=== PATIENT | female | born 1965 | race Caucasian/White ===

== ENCOUNTER 2023-06-23 13:13 | Emergency (ER) | payer OTHER ==
[~2023-06-23] VITALS: Ht 167.6 cm; Wt 63.5 kg
[2023-06-23] MEDS ORDERED: UNITHROID112 MCG (13:53)
[2023-06-23] MEDS ORDERED: TOPROL XL25 M1 (13:53)
== END 2023-06-23 18:24 | disposition home or self-care (01) ==
LOC: ER 13:13
DX: L02.92 Furuncle, unspecified (principal); I10 Essential (primary) hypertension; Z88.0 Allergy status to penicillin; Z88.6 Allergy status to analgesic agent; Z16.23 Resistance to quinolones and fluoroquinolones